=== PATIENT | male | born 1980 | race Two or more races ===

== ENCOUNTER 2021-08-09 00:49 | Emergency (ER) | payer BC ==
[~2021-08-09] VITALS: Ht 170.2 cm; Wt 70.0 kg
[2021-08-09] MEDS ORDERED: ACETAMINOPHEN 500MG TABLET PO ONE (02:00)
[2021-08-09] MEDS ORDERED: IBUPROFEN 600MG TABLET PO ONE (02:00)
[2021-08-09] MEDS ORDERED: KETOROLAC 30MG/ML VIAL IM ONE (02:30)
[2021-08-09] MEDS ORDERED: ACET-2708 MT (02:34)
[2021-08-09 03:02] VITALS: BP 118/66
== END 2021-08-09 03:04 | disposition home or self-care (01) ==
LOC: ER 01:25
DX: B34.9 Viral infection, unspecified (principal); E11.9 Type 2 diabetes mellitus without complications; E78.00 Pure hypercholesterolemia, unspecified; E05.90 Thyrotoxicosis, unspecified without thyrotoxic crisis or storm; Z20.822 Contact with and (suspected) exposure to COVID-19
CPT/HCPCS: 87426; 87804; 96372; 99283; C9803; J1885